=== PATIENT | female | born 1960 | race Caucasian/White ===

== ENCOUNTER → 2017-08-15 | Outpatient (CLI) | payer OTHER ==
[~2017-08-15] MED LIST: BIOTIN1 MG PO; FISH OIL 1,001000 M2 PO; HYDROCODONE-AP1 EAC6 PO; MULTIPLE VITAM1 EACH PO
== END ==
LOC: M.RAD 16:00
DX: Z12.31 Encounter for screening mammogram for malignant neoplasm of breast (principal); N63.10 Unspecified lump in the right breast, unspecified quadrant

== ENCOUNTER → 2017-09-18 | Outpatient (CLI) | payer OTHER | LOC: M.MRI 16:03 | DX: N63.20 Unspecified lump in the left breast, unspecified quadrant (principal); N63.10 Unspecified lump in the right breast, unspecified quadrant; Z85.3 Personal history of malignant neoplasm of breast ==

== ENCOUNTER 2017-10-04 13:13 | Observation (INO) | payer OTHER ==
[~2017-10-04] VITALS: Ht 167.6 cm; Wt 98.0 kg
[~2017-10-04 13:13] MED LIST changes: -HYDROCODONE-AP1 EAC6 PO
--- NOTE | 2017-10-04 19:08 | OP ---
[address] [address] OPERATIVE REPORT Name: DESIREE PRITCHARD Room: [address] IN .R.#: [id number] Admission: 10/04/17 Attend Phys: Nunu Lambert DO Discharge: Date of : 62 Report #: [id number] THIS REPORT FOR: //name// CC: Nunu Fry DATE OF SERVICE: 10/04/2017 PREOPERATIVE DIAGNOSIS: Right breast lobular carcinoma, which is metastatic to the right axillary lymph nodes. POSTOPERATIVE DIAGNOSIS: Right breast lobular carcinoma, which is metastatic to the right axillary lymph nodes. SURGEON: Nunu Lambert DO. COSURGEON: Moni Villafuerte, PGY5. INJECTION MOLDING SUPERVISOR: MS Korin3. OPERATION PERFORMED: Right simple skin-sparing mastectomy with right axillary lymph node dissection, left ultrasound and fluoroscopy guided 8-Iranian chemo port placement with surgeon interpretation of images. ANESTHESIA: General LMA and local. ESTIMATED BLOOD LOSS: 30 mL. DRAINS: Right 15-Iranian DIONICIO drain. SPECIMENS: Right breast and right axillary tissue. COMPLICATIONS: None. CONDITION: Stable. DISPOSITION: PACU to home. HISTORY OF PRESENT ILLNESS: The patient is a very pleasant 56-year-old female who presented to my office with complaint of a right breast mass. She underwent a biopsy of both the mass and of a right axillary lymph node, which was enlarged, and both returned with findings of right lobular carcinoma. She was seen by Oncology and Radiation Oncology and underwent an MRI. MRI was concerning for a very large area of possible involvement and involvement of multiple lymph nodes. In multidisciplinary rounds, Oncology indicated that they [address] [address] OPERATIVE REPORT Name: LIANSREEDHARDESIREE L Room: [address] IN [facility].#: [id number] Admission: 10/04/17 Attend Phys: Nunu Lambert DO Discharge: Date of : 62 Report #: [id number] did not think that neoadjuvant chemotherapy would be assistive in this case. She was then consented for a right mastectomy and right axillary lymph node dissection and a left chemo port placement utilizing ultrasound and fluoroscopy. Risks discussed included bleeding, infection, pain, scar formation, need for further surgery, injury to arteries, veins or lymphatics causing chronic pain, numbness, tingling or swelling; injury to the lung requiring chest tube and risks of general anesthesia. The patient understood these risks and elected to proceed. DESCRIPTION OF PROCEDURE: The patient was brought to the operating room. She was laid supine on the operating room table. SCDs were placed on bilateral lower extremities. Ancef was given in the perioperative period. General LMA anesthesia was induced by Anesthesia without difficulty. Right breast and axilla were prepped and draped in a standard sterile fashion. Timeout was performed to verify the patient and procedure. A 5 mL of Lymphazurin blue were injected in the periareolar area. We began by marking out the clavicle, sternum, inframammary fold and the latissimus dorsi. An elliptical incision was marked out in this area, taking care to include the previous biopsy site. A 30 mL of 0.5% Marcaine were injected along the planned incision. Incision was made with a #15 blade. Cautery was used for hemostasis. We then began forming flaps, initially moving inferiorly until the inframammary fold was reached, medially to the sternum, superiorly to the clavicle and laterally to the latissimus dorsi. This was all completed utilizing cautery. Breast tissue was gently elevated using an Allis clamp and was then dissected free from the underlying pectoralis fascia using cautery. Specimen was marked in the superior and lateral directions and was handed off for permanent pathology. We then turned our attention to the right axilla. We were able to palpate a very large area of matted lymph nodes right at the edge of the axilla. The entirety of this area was grasped utilizing Allis clamp. A full axillary lymph node dissection of level 1 and level 2 nodes was then completed using very careful combination of blunt and cautery dissection. We continued superiorly until the axillary vein was clearly identified and medially until the long thoracic nerve was identified. Any palpable lymph nodes were also included in the dissection. Several small arteries were encountered during the dissection and were doubly clipped and ligated. Once the entirety of the axillary contents was excised, these were then handed off for permanent pathology. Hemostasis was assured. The wound was irrigated with 100 mL of warm saline. FloSeal was introduced into the axilla and along the mastectomy incision. A 15-Iranian DIONICIO drain was introduced through the lower flap. Wound was then closed in a layered fashion using deep and superficial stitches of 3-0 Vicryl in inverted interrupted fashion. Skin wound was closed with a running 4-0 Monocryl. A total of 40 mL of 0.5% Marcaine were used to anesthetize the wound. The wounds were then cleansed and covered with skin glue. Our drain was sutured into place using 2-0 nylon and was covered with a 4 x 4 and a Tegaderm. Drapes were then completely removed and the patient was repositioned in [place] [id number] OPERATIVE REPORT Name: DESIREE PRITCHARD Room: [address] IN ..#: [id number] Admission: 10/04/17 Attend Phys: Nunu Lambert DO Discharge: Date of : 62 Report #: [id number] preparation for our left chemo port placement. Timeout was again completed. Left neck and chest were prepped and draped in the standard sterile fashion. Ultrasound was used to visualize the left internal jugular. A 10 mL of 0.5% Marcaine were injected in this area and along the infraclavicular area. Left internal jugular vein was then accessed using a needle. Wire passed without difficulty. Fluoroscopy was used to verify that the wire was in the correct position. Ultrasound was also used to visualize the wire passing into the left internal jugular. A 15 blade was then used to create a pocket in the infraclavicular area. Cautery was used for hemostasis. A small daniel was then made at the site of our wire using an 11 blade. Breakaway catheter and dilator were then introduced without difficulty. Dilator and wire were removed. Chemo port tubing was advanced without issue. Fluoroscopy was again utilized to visualize the tip of the chemo port tubing in the superior vena cava. The tubing was then easily tunneled into our previously formed pocket. It was then attached to the chemo port itself with no difficulty. Chemo port was sutured to the underlying fascia using two stitches of 2-0 Prolene. The port was then accessed using a Bellamy needle. We had excellent flow and flush. It was vigorously flushed with saline and then locked with 2 mL of a premixed heparin solution. Fluoroscopy was used one last time to again visualize that the tip of the catheter was in the superior vena cava and that there were no kinks along the pathway of the tubing. Fluoroscopy time was 17 seconds. This wound was then closed in a layered fashion using deep and superficial stitches of 3-0 Vicryl in inverted interrupted fashion. Skin wound was closed with running 4-0 Monocryl. Wound was then cleansed and covered with skin glue. The patient was then allowed to awaken from anesthesia, was extubated and transported to the recovery room with no further difficulties. Counts were correct at the conclusion of the case. <ELECTRONICALLY SIGNED> By: Nunu Lambert DO 10/04/17 [id number] 1859Chleonila Lambert DO /nt
[2017-10-04 19:45] VITALS: BP 140/65
[2017-10-05] VITALS (8 sets, daily range): BP systolic 121–145; BP diastolic 54–66
--- NOTE | 2017-10-05 00:35 | NUR ---
PATIENT ARRIVED ON UNIT AT 194. VSS ON ROOM AIR. PATIENT ORIENTED TO UNIT. AGREED TO AND SIGNED FALL AGREEMENT. BED ALARM IN PLACE. CALL LIGHT WITHIN REACH. NURSING WILL CONTINUE TO MONITOR.
--- NOTE | 2017-10-05 05:24 | NUR ---
PATIENT REMAINS ALERT AND ORIENTED X4 THROUGHOUT SHIFT. VITAL SIGNS STABLE ON ROOM AIR. LIMB ALERT IN PLACE ON LEFT AND RIGHT ARM. TRANSFERRING WITH ASSIST OF 1 TO THE BATHROOM. PAIN WAS MANAGED WITH IV MEDICATION. DERMABOND, ABD'S, AND SUPPORT BRA IN PLACE. ICE APPLIED TO RIGHT CHEST. TOLERATING CLEAR LIQUID DIET AT THIS TIME AND MAY ADVANCE TOLERATED. IV PATENT IN THE LEFT HAND AND SALINE LOCKED. RESTING COMFORTABLY THROUGHOUT NIGHT. FALL PRECAUTIONS IN PLACE. BED IN LOW POSITION AND ALARM ON. CALL LIGHT WITHIN REACH. NURSING WILL CONTINUE TO MONITOR.
--- NOTE | 2017-10-05 09:33 | NUR ---
PT.TO DISCHARGE THIS AM. NEEDS HOME HEALTH NURSING. SET UP WITH [facility]. THEY WILL CALL HER TO SET UP APPT. FAXED ORDERS, FACE SHEET AND OP REPORT TO [facility].
[2017-10-05] MEDS ORDERED: HYDROCODONE-AP1 EAC6 PO (10:21)
--- NOTE | 2017-10-05 15:27 | NUR ---
PATIENT LEFT UNIT AT 1030. ALERT AND ORIENTED X4. UP AD YVES IN ROOM. IV DC'D. NO NEED FOR PAIN MEDICATION THIS SHIFT. DENIES NAUSEA. COMPRESSION BRA IN PLACE. DIONICIO DRAIN IN PLACE AND DRAINING AT DC. EDUCATION GIVEN TO PATIENT BY NURSING ON DIONICIO DRAIN. ALL PERSONAL ITEMS LEFT WITH PATIENT. DISCHARGE INSTRUCTION, PRESCRIPTIONS, AND NEW MEDICATION INFORMATION SENT WITH PATIENT. VSS ON ROOM AIR. HOURLY ROUNDS HAVE BEEN MAINTAINED THROUGHOUT SHIFT. LEFT WITH VIA CAR.
--- NOTE | 2017-10-10 14:54 | S ---
[address] [address] SURGICAL PATH RPT PROCEDURE Name: DESIREE COWAN Room: [address] Vinayak Key#: [id number] Admission: 10/04/17 Date of : 62 Discharge: 10/05/17 Report #: [id number] Path Case #: [id number] PATHOLOGY REPORT COLLECTION DATE: 10/04/2017 RECEIVED DATE: 10/05/2017 SUBMITTING PHYS: Dr. Nunu Lambert OTHER PHYS: Dr. Ivy Fry SPECIMEN(S) RECEIVED: A.R breast short sup, long lat B.R axillary contents * * * * * * * * * * * * FINAL DIAGNOSIS: A. Right breast: - PLEOMORPHIC LOBULAR CARCINOMA (III/III), SPANNING 25 x 23 x 21 MM IN ASSOCIATION WITH CHANGES OF PRIOR BIOPSY, WITH ALL SURGICAL MARGINS FREE OF INVOLVEMENT AND CLOSEST (ANTEROINFERIOR) LOCATED 7 MM AWAY. (SEE COMMENT) B. Right axillary contents: - TWO OF ELEVEN LYMPH NODES WITH METASTATIC PLEOMORPHIC LOBULAR CARCINOMA, WITH EXTRACAPSULAR INVOLVEMENT IDENTIFIED (2/11). (SEE COMMENT) SYNOPTIC CANCER STAGING REPORT CLINICAL Clinical History: Prior history of breast cancer Specify Site, Diagnosis, and Prior Treatment: see comment SPECIMEN Procedure: Total mastectomy (including nipple and skin) Lymph Node Sampling: Axillary dissection (partial or complete dissection) Specimen Laterality: Right TUMOR Primary Tumor Site: Invasive Carcinoma: Other: 1 cm from nipple Specify Clock Position of Tumor Site: 6 o'clock 7 o'clock Presence of Invasive Carcinoma: Histologic Type: Invasive lobular carcinoma with pleomorphic features Histologic Grade (Jones Histologic Score): Glandular (Acinar) / Tubular Differentiation: Score 3 (< 10% of tumor area forming glandular / tubular structures) [place] [address] SURGICAL PATH RPT PROCEDURE Name: LIANSREEDHARDESIREE L Room: [address]#: [id number] Admission: 10/04/17 Date of : 62 Discharge: 10/05/17 Report #: [id number] Path Case #: [id number] Nuclear Pleomorphism: Score 3 (Vesicular nuclei, often with prominent nucleoli, exhibiting marked variation in size and shape, occasionally with very large and bizarre forms) Mitotic Rate: Score 2 (4-7 mitoses per mm2) Overall Grade: Grade 3 (scores of 8 or 9) Ductal Carcinoma In Situ (DCIS): No DCIS is present Lobular Carcinoma In Situ (LCIS): Present Tumor Size: Size of Largest Invasive Carcinoma: Greatest dimension of largest focus of invasion > 1 mm Greatest Dimension (mm): 25 Additional Dimension (mm): 23 Additional Dimension (mm): 21 Accessory Tumor Findings Lymph-Vascular Invasion: Not identified Dermal Lymph-Vascular Invasion: Not identified Microcalcifications: Present in nonneoplastic tissue Treatment Effect: Response to Presurgical (Neoadjuvant) Therapy: No known presurgical therapy MARGINS Invasive Carcinoma: Margins uninvolved by invasive carcinoma Distance from Closest Margin: Distance (specify in mm): 7 Closest Uninvolved Margin: Other (specify margin): anteroinferior Posterior: 17 Ductal Carcinoma In Situ (DCIS): DCIS not present in specimen LYMPH NODES Regional Lymph Nodes: Number of Lymph Node(s) Examined (sentinel and nonsentinel): Specify number: 11 Lymph Node Involvement: Number of Lymph Nodes with Macrometastases (> 2 mm): Specify number: 2 Number of Lymph Nodes with Micrometastases (> 0.2 mm to 2 mm and / or > 200 cells): Specify number: 0 Number of Lymph Nodes with Isolated Tumor Cells (<= 0.2 mm and <= 200 cells): Specify number: 0 Size of Largest Tumor Deposit: Specify (mm): 32 Extranodal Extension: Present STAGE (PTNM) Primary Tumor (Invasive Carcinoma) (pT): pT2: Tumor > 20 mm but <= 50 mm in greatest dimension Category (pN): pN1a: Metastases in 1 to 3 axillary lymph nodes, at least 1 metastasis greater than 2 mm # [place] [address] SURGICAL PATH RPT PROCEDURE Name: LIANSREEDHARDESIREE Room: [address] Vinayak Key#: [id number] Admission: 10/04/17 Date of : 62 Discharge: 10/05/17 Report #: [id number] Path Case #: [id number] COMMENT: The largest lymph node noted to be involved by metastatic tumor shows features of prior biopsy, and this lymph node shows extranodal involvement (B5-B7). Breast tumor profile studies were performed on the recent previous right breast, 6:30, 1.0 cm from nipple, image-guided core biopsy ([id number] B1) and showed the following results: ER: 98.0% VA: 55.9% HER-2: 1+/ not overexpressed Ki-67: 27.0% (ROBERTO:mgr; 10/09/2017) PATHOLOGIST: Harpal Foster M.D. REPORT ELECTRONICALLY SIGNED BY: Harpal Foster M.D. DATE/TIME: 10/10/2017 14:54 * * * * * * * * * * * * GROSS PATHOLOGY: A. Received in formalin labeled "Desiree Cowan, right breast short suture superior and long lateral" and consists of an 891 g mastectomy specimen oriented with sutures as described. The breast measures 25.5 cm L-M, 17.5 cm S-I and 5.5 cm A-P. The anterior skin ellipse measures 21.7 x 6.7 cm. An everted nipple measures 1.2 cm in diameter. The skin shows blue dye. There are no skin lesions identified. The deep margin is intact with no skeletal muscle identified. The margins are inked as follows: anterosuperior - blue, anteroinferior - green and posterior - black. Sectioning reveals a moderately circumscribed, solid, noyola-white, and focally yellow orange mass at approximately the 6:30 position and 1.0 cm from the nipple measuring 2.5 x 2.3 x 2.1 cm. The following measurements of mass to margins are obtained: anteroinferior 0.8 cm, posterior 1.7 cm and all other margins 10.0 cm or greater. There are no other masses or lesions identified. The remaining cut surfaces are composed of approximately 15% white fibrous stroma and 85% unremarkable adipose tissue. The cold ischemic time is 9 minutes and the formalin fixation time is approximately 37 hours. Fender Finisher sections are submitted A1-A13. A1-A2 nipple A3 anteroinferior and anterosuperior cutaneous margins A4-A6 mass to anteroinferior margin A7 additional mass, no margin A8 posterior margin nearest mass A9 UOQ A10 LOQ A11 UIQ [place]12 [place] [address] SURGICAL PATH RPT PROCEDURE Name: DESIREE COWAN Room: [address]#: [id number] Admission: 10/04/17 Date of : 62 Discharge: 10/05/17 Report #: [id number] Path Case #: [id number] A13 parenchyma deep to nipple B. Received in formalin labeled "Desiree Cowan, right axillary contents" and consists of 2 fragments of lobulated yellow orange fat with a combined weight of 74 g and aggregating to 7.0 x 6.5 x 4.0 cm. Sectioning reveals a few lymph node candidates ranging in size from 0.4 x 0.2 x 0.3 cm to 3.2 x 2.7 x 1.6 cm. The largest lymph node candidate is suspicious for gross metastasis. The cut surfaces are solid and noyola. All lymph node candidates are submitted. Fender Finisher sections are submitted B1-B8. B1 whole lymph node candidates B2 whole lymph node candidates B3 one lymph node candidate, serially-sectioned B4-B8 largest lymph node candidate, serially-sectioned (GISSELL; 10/06/2017) CLINICAL HISTORY: Right breast cancer INITIAL CPT CODE(S): A; 49202 B; 85860 Professional services [place] [address] Technical services performed by [facility] at [address] [place] [address], [address], [place] [address]. [facility] [address] [place] [address] PHONE: [phone] DIRECTOR: Renato Lopez M.D. * * * END OF REPORT * * *
== END 2017-10-05 10:30 | disposition home or self-care (01) ==
LOC: M.ORTHSURG 13:13 → M.SUR 13:13 → M.ORTHSURG 18:38 → M.TBA 18:38 → M.ORTHSURG 18:38 → M.SUR 18:38 → M.ORTHSURG 20:01 → M.TBA 20:01 → M.ORTHSURG 20:01
PROVIDERS: ADMIT Surgery
DX: C50.911 Malignant neoplasm of unspecified site of right female breast (principal); C77.3 Secondary and unspecified malignant neoplasm of axilla and upper limb lymph nodes

== ENCOUNTER → 2017-10-26 | Outpatient (CLI) | payer OTHER ==
[~2017-10-26] MED LIST changes: +HYDROCODONE-AP1 EAC6 PO
--- NOTE | 2017-10-26 17:16 | 2DMMODE ---
[facility] [place] [address] 2 D/M-MODE ECHOCARDIOGRAM Name: MACHODESIREE Rambo Room: [facility]#: [id number] Admission: 10/26/17 Attend Phys: Rafael Fry MD Discharge: Date of : 62 Date of Service: 10/26/17 1715 Report #: [id number] THIS REPORT FOR: //name// APPROVED REPORT Study performed: 10/26/2017 14:19:33 EXAM: Limited 2D Echocardiogram Patient Location: Out-Patient Status: routine BSA: 2.05 HR: 91 bpm BP: 150/92 mmHg Rhythm: NSR Other Information Study Quality: Good Indications Chemo Volumes Left Atrial Volume (Systole) LA ESV Index: 23.20 mL/m2 Left Ventricle The left ventricle is normal size. There is normal left ventricular wall thickness. The left ventricular systolic function is normal. LVEF is 65-70%. GLS: -23.96 (Global Longitudinal Strain), this is within normal limits. Right Ventricle The right ventricle is normal size. The right ventricular systolic function is normal. Atria The left atrium size is normal. The right atrium size is normal. Aortic Valve The aortic valve is normal in structure. Mitral Valve The mitral valve is normal in structure. [address] [address] 2 D/M-MODE ECHOCARDIOGRAM Name: DESIREE PRITCHARD Rambo Room: [facility]#: [id number] Admission: 10/26/17 Attend Phys: Rafael Fry MD Discharge: Date of : 62 Date of Service: 10/26/171714 Report #: [id number] Tricuspid Valve The tricuspid valve is normal in structure. Pulmonic Valve The pulmonary valve is normal in structure. Great Vessels The aortic root is normal in size. IVC is normal in size and collapses >50% with inspiration. Pericardium There is no pericardial effusion. <Conclusion> The left ventricle is normal size. There is normal left ventricular wall thickness. The left ventricular systolic function is normal. LVEF is 65-70%. GLS: -23.96 (Global Longitudinal Strain), this is within normal limits. <ELECTRONICALLY SIGNED> By: Lico Santillan MD, FACC 10/26/171714 14 14 Lico Santillan MD, FACC /INF
== END ==
LOC: M.CRD 13:54
DX: Z51.81 Encounter for therapeutic drug level monitoring (principal); C50.411 Malignant neoplasm of upper-outer quadrant of right female breast; Z17.0 Estrogen receptor positive status [ER+]

== ENCOUNTER → 2018-08-31 | Outpatient (CLI) | payer OTHER | LOC: M.RAD 08-30 10:00 | DX: C50.411 Malignant neoplasm of upper-outer quadrant of right female breast (principal); R92.1 Mammographic calcification found on diagnostic imaging of breast; Z17.0 Estrogen receptor positive status [ER+]; Z90.11 Acquired absence of right breast and nipple ==

== ENCOUNTER → 2018-11-14 | Outpatient (CLI) | payer OTHER ==
--- NOTE | 2018-11-14 13:16 | 2DMMODE ---
[place] [address] 2 D/M-MODE ECHOCARDIOGRAM Name: DESIREE PRITCHARD [id number] Admission: 11/14/18 Attend Phys: Ivy Huertas Discharge: Date of : 62 Date of Service: 11/14/18 1316 Report #: [id number] THIS REPORT FOR: //name// APPROVED REPORT Study performed: 11/14/2018 08:03:24 EXAM: Comprehensive 2D, Doppler, and color-flow Echocardiogram Patient Location: Out-Patient BSA: 1.84 HR: 82 bpm BP: 150/92 mmHg Other Information Study Quality: Excellent Indications Hx. of chemo 2D Dimensions IVSd: 12.01 (7-11mm) LVOT Diam: 20.31 (18-24mm) LVDd: 41.00 mm PWd: 9.57 (7-11mm) Ascending Ao: 26.20 (22-36mm) LVDs: 27.43 (25-40mm) Aortic Root: 27.20 mm Volumes Left Atrial Volume (Systole) LA ESV Index: 14.70 mL/m2 Aortic Valve AoV Peak Dennis.: 1.05 m/s AO Peak Gr.: 4.42 mmHg LVOT Max P.56 mmHg AO Mean Gr.: 2.44 mmHg LVOT Mean P.70 mmHg LVOT Max V: 0.94 m/s AO V2 VTI: 21.16 cm LVOT Mean V: 0.60 m/s LISA (VTI): 2.76 cm2 LVOT V1 VTI: 18.04 cm Mitral Valve E/A Ratio: 1.00 MV Decel. Time: 209.27 ms MV E Max Dennis.: 0.54 m/s MV PHT: 60.69 ms MVA (PHT): 3.63 cm2 [place] [address] 2 D/M-MODE ECHOCARDIOGRAM Name: DESIREE PRITCHARD Room: [facility]#: [id number] Admission: 11/14/18 Attend Phys: Ivy Huertas Discharge: Date of : 62 Date of Service: 11/14/18 1316 Report #: [id number] TDI E/Lateral E': 3.86 E/Medial E': 5.40 Medial E' Dennis.: 0.10 m/s Lateral E' Dennis.: 0.14 m/s Pulmonary Valve PV Peak Dennis.: 0.89 m/s PV Peak Gr.: 3.18 mmHg Left Ventricle The left ventricle is normal size. There is normal LV segmental wall motion. There is normal left ventricular wall thickness. Left ventricular systolic function is normal. The left ventricular ejection fraction is within the normal range. LVEF is 55-60%. The left ventricular diastolic function is normal. Right Ventricle The right ventricle is normal size. The right ventricular systolic function is normal. Atria The left atrium size is normal. The right atrium size is normal. Aortic Valve The aortic valve is normal in structure. No aortic regurgitation is present. There is no aortic valvular stenosis. Mitral Valve The mitral valve is normal in structure. Trace mitral regurgitation. No evidence of mitral valve stenosis. Tricuspid Valve The tricuspid valve is normal in structure. There is no tricuspid valve regurgitation noted. Pulmonic Valve The pulmonary valve is normal in structure. There is no pulmonic valvular regurgitation. Great Vessels The aortic root is normal in size. IVC is normal in size and collapses >50% with inspiration. Pericardium There is no [place] [address] 2 D/M-MODE ECHOCARDIOGRAM Name: DESIREE PRITCHARDMICHAEL Room: [facility] Yesi#: [id number] Admission: 11/14/18 Attend Phys: Ivy Huertas Discharge: Date of : 62 Date of Service: 11/14/18 1316 Report #: [id number] <Conclusion> Left ventricular systolic function is normal. The left ventricular ejection fraction is within the normal range. <ELECTRONICALLY SIGNED> By: Vishal Rios MD, [facility] 11/14/18 1316 1316 15 Vishal Rios MD, [facility] /INF
== END ==
LOC: M.CRD 07:28
DX: Z51.11 Encounter for antineoplastic chemotherapy (principal); C50.919 Malignant neoplasm of unspecified site of unspecified female breast

== ENCOUNTER → 2019-03-05 | Outpatient (CLI) | payer OTHER | LOC: M.ULTRA 14:39 | DX: M79.89 Other specified soft tissue disorders (principal) ==

== ENCOUNTER → 2019-04-18 | Outpatient (CLI) | payer OTHER | LOC: M.RAD 13:30 | DX: M85.88 Other specified disorders of bone density and structure, other site (principal) ==

== ENCOUNTER → 2019-09-20 | Outpatient (CLI) | payer OTHER | LOC: M.RAD 12:55 | DX: Z12.31 Encounter for screening mammogram for malignant neoplasm of breast (principal) ==

== ENCOUNTER → 2020-07-15 | Outpatient (CLI) | payer OTHER | LOC: M.ULTRA 15:49 | PROVIDERS: ATTEND Nurse Practitioner | DX: D21.9 Benign neoplasm of connective and other soft tissue, unspecified (principal); M79.89 Other specified soft tissue disorders ==

== ENCOUNTER → 2020-09-23 | Outpatient (CLI) | payer OTHER | LOC: M.RAD 15:00 | PROVIDERS: ATTEND Family Medicine | DX: Z12.31 Encounter for screening mammogram for malignant neoplasm of breast (principal) ==

== ENCOUNTER → 2021-04-05 | Outpatient (CLI) | payer OTHER | LOC: M.RAD 07:57 | PROVIDERS: ATTEND Internal Medicine Hematology & Oncology | DX: M85.89 Other specified disorders of bone density and structure, multiple sites (principal); C50.411 Malignant neoplasm of upper-outer quadrant of right female breast; Z79.811 Long term (current) use of aromatase inhibitors ==